=== PATIENT | female | born 1995 ===

== ENCOUNTER 2021-11-01 10:19 | Emergency (ER) | payer SELFPAY ==
[~2021-11-01] VITALS: Ht 157.5 cm; Wt 76.7 kg
[2021-11-01 10:41] VITALS: BP 144/78
[2021-11-01] MEDS ORDERED: LIDO2SOL23 PO (11:00)
[2021-11-01] MEDS ORDERED: AZIT250T8 PO (11:00)
[2021-11-01] MEDS ORDERED: cefTRIAXone SOD 1,000 MG VL IM ONE (11:00)
== END 2021-11-01 11:21 | disposition home or self-care (01) ==
LOC: ER 10:19
DX: J03.90 Acute tonsillitis, unspecified (principal); Z98.51 Tubal ligation status; Z88.6 Allergy status to analgesic agent
CPT/HCPCS: 96372; 99283; J0696